=== PATIENT | male | born 1985 | race Caucasian/White ===

== ENCOUNTER 2017-05-16 23:58 | Emergency (ER) | payer BC, OTHER ==
[2017-05-17] MEDS: ACETAMINOPHEN 325 MG TAB PO (04:31)
[2017-05-17] MEDS: KETOROLAC 60 MG INJ IM (04:32)
== END 2017-05-17 05:29 | disposition home or self-care (01) ==
LOC: FTE 23:58
DX: J20.9 Acute bronchitis, unspecified (principal); R07.81 Pleurodynia
CPT/HCPCS: 71045; 93005; 96372; 99284-25